=== PATIENT | female | born 1955 | race Caucasian/White ===

== ENCOUNTER 2025-07-23 14:23 | Outpatient (CLI) | payer BC, SELFPAY ==
--- NOTE | 2025-07-23 | ECG_ITS ---
Test Date: 2025-07-23 14:48:57 Measurements Intervals [place] Rate: 106 P: 48 ME: 148 QRS: -33 QRSD: 99 T: 32 QT: 337 QTc: 448 Interpretive Statements SINUS TACHYCARDIA LEFT AXIS DEVIATION LOW QRS VOLTAGE IN PRECORDIAL LEAD ANTERIOR INFARCT, AGE INDETERMINATE BASELINE ARTIFACT- V5-V6 ABNORMAL ECG No previous ECG available for comparison Electronically Signed On 07-23-2025 14:53:37 RAIMANN MACHINE OPERATOR by Jonah Whitman D.O.
== END 2025-07-23 14:24 | disposition home or self-care (01) ==
PROVIDERS: PCP Nurse Practitioner Family; Visit Provider Nurse Practitioner Family
DX: R94.31 Abnormal electrocardiogram [ECG] [EKG] (principal)
CPT/HCPCS: 93005